=== PATIENT | female | born 1945 | race Caucasian/White ===

== ENCOUNTER 2019-11-18 17:02 | Emergency (ER) | payer MEDICARE ==
[~2019-11-18] VITALS: Ht 157.5 cm; Wt 36.0 kg
[2019-11-18 17:46] LABS: BASOPHILS # (AUTO) 0.1 X10'3 (0-0.2); BASOPHILS % (AUTO) 0.9 % (0-1); EOSINOPHILS # (AUTO) 0.1 X10'3 (0-0.9); EOSINOPHILS % (AUTO) 1.6 % (0-6); HEMATOCRIT 40.4 % (35.0-45.0); HEMOGLOBIN 13.9 g/dl (12.0-16.0); LYMPHOCYTES # (AUTO) 1.3 X10'3 (1.1-4.8); LYMPHOCYTES % (AUTO) 17.8 % (21-51); MEAN CORPUSCULAR HEMOGLOBIN 32.8 PG (27.0-31.0); MEAN CORPUSCULAR HGB CONC 34.4 g/dL (33.0-36.5); MEAN CORPUSCULAR VOLUME 95.4 FL (78-98); MEAN PLATELET VOLUME 8.3 FL (7.4-10.4); MONOCYTES # (AUTO) 0.7 X10'3 (0-0.9); MONOCYTES % (AUTO) 9.5 % (2-12); NEUTROPHILS % (AUTO) 70.2 % (42-75); PLATELET COUNT 193 X10'3 (140-440); RED BLOOD COUNT 4.24 X10'6 (4.20-5.60); WHITE BLOOD COUNT 7.1 X10'3 (4.5-11.0)
[2019-11-18 18:08] LABS: ALANINE AMINOTRANSFERASE 19 U/L (12-78); ALBUMIN 3.7 G/DL (3.4-5.0); ALBUMIN/GLOBULIN RATIO 0.8 (1.1-1.5); ALKALINE PHOSPHATASE 88 IU/L (46-116); ANION GAP 8 (8-16); ASPARTATE AMINO TRANSFERASE 28 U/L (10-37); BILIRUBIN,TOTAL 0.3 MG/DL (0.1-1.0); BLOOD UREA NITROGEN 13 MG/DL (7-18); BUN/CREATININE RATIO 18.8 (6.6-38.0); CALCIUM 9.2 MG/DL (8.5-10.1); CHLORIDE 100 MMOL/L (99-107); CREATININE 0.69 MG/DL (0.40-0.90); GLUCOSE 87 MG/DL (70-104); POTASSIUM 4.9 MMOL/L (3.5-5.1); SODIUM 139 MMOL/L (135-145); TOTAL CARBON DIOXIDE 31.2 MMOL/L (24-32); TOTAL PROTEIN 8.2 G/DL (6.4-8.2); eGFR 83 ML/MIN
[2019-11-18] MEDS ORDERED: LEVO750T21 PO (20:15)
[2019-11-18 20:31] VITALS: BP 115/75
== END 2019-11-18 20:32 | disposition home or self-care (01) ==
LOC: ER 17:03
DX: J20.9 Acute bronchitis, unspecified (principal); Z79.899 Other long term (current) drug therapy
CPT/HCPCS: 36415; 71046; 80053; 84484; 85025; 93005; 99284

== ENCOUNTER 2020-04-04 10:48 | Day surgery (SDC) | payer MEDICARE ==
[2020-04-04] VITALS (7 sets, daily range): BP systolic 90–130; BP diastolic 55–75
[~2020-04-04] VITALS: Ht 142.2 cm; Wt 30.8 kg
[2020-04-04] MEDS ORDERED: cefazolin/dext.iso 2gm/50ml 50 ML IV ONE (11:10)
[2020-04-04] MEDS ORDERED: normal saline 1000ml 1,000 ML IV SCH (11:15)
[2020-04-04 12:11] LABS: BASOPHILS % (AUTO) 0.4 % (0-1); EOSINOPHILS % (AUTO) 1.1 % (0-6); HEMATOCRIT 30.2 % (35.0-45.0); HEMOGLOBIN 10.1 g/dl (12.0-16.0); LYMPHOCYTES # (AUTO) 1.1 X10'3 (1.1-4.8); LYMPHOCYTES % (AUTO) 26.9 % (21-51); MEAN CORPUSCULAR HEMOGLOBIN 31.8 PG (27.0-31.0); MEAN CORPUSCULAR HGB CONC 33.4 g/dL (33.0-36.5); MEAN PLATELET VOLUME 9.3 FL (7.4-10.4); MONOCYTES # (AUTO) 0.2 X10'3 (0-0.9); MONOCYTES % (AUTO) 6.2 % (2-12); NEUTROPHILS # (AUTO) 2.6 X10'3 (1.8-7.7); NEUTROPHILS % (AUTO) 65.4 % (42-75); PLATELET COUNT 174 X10'3 (140-440); RED BLOOD COUNT 3.17 X10'6 (4.20-5.60); WHITE BLOOD COUNT 3.9 X10'3 (4.5-11.0)
[2020-04-04] MEDS ORDERED: MORP15TA PO (12:18)
[2020-04-04] MEDS ORDERED: LACT-100 GT (12:18)
[2020-04-04] MEDS ORDERED: GABA300C PO (12:18)
[2020-04-04] MEDS ORDERED: SIMV10TA2 PO (12:18)
[2020-04-04 12:34] LABS: ALANINE AMINOTRANSFERASE 30 U/L (12-78); ALBUMIN 3.6 G/DL (3.4-5.0); ALBUMIN/GLOBULIN RATIO 0.9 (1.1-1.5); ALKALINE PHOSPHATASE 53 IU/L (46-116); ANION GAP 6 (8-16); ASPARTATE AMINO TRANSFERASE 37 U/L (10-37); BILIRUBIN,TOTAL 0.2 MG/DL (0.1-1.0); BLOOD UREA NITROGEN 15 MG/DL (7-18); BUN/CREATININE RATIO 27.3 (6.6-38.0); CALCIUM 8.5 MG/DL (8.5-10.1); CHLORIDE 103 MMOL/L (99-107); CREATININE 0.55 MG/DL (0.40-0.90); GLUCOSE 87 MG/DL (70-104); POTASSIUM 3.9 MMOL/L (3.5-5.1); SODIUM 136 MMOL/L (135-145); TOTAL CARBON DIOXIDE 26.9 MMOL/L (24-32); TOTAL PROTEIN 7.6 G/DL (6.4-8.2); eGFR > 90 ML/MIN
[2020-04-04] MEDS ORDERED: zinc oxide ointment 30gm tube TP PRN (12:50)
[2020-04-04] MEDS ORDERED: midazolam 2 mg/2 ml injection ONE (13:19)
[2020-04-04] MEDS ORDERED: fentaNYL/PF 50MCG/1 ML 2ML syringe ONE ×2 (13:19→13:37)
[2020-04-04] MEDS ORDERED: iohexol 300 MG/1 ML 50ml polymer ONE ×2 (13:20→13:27)
== END 2020-04-04 15:10 | disposition home or self-care (01) ==
LOC: SSTAY O 10:48
PROVIDERS: ATTEND Radiology Diagnostic Radiology
DX: Z43.1 Encounter for attention to gastrostomy (principal); C76.0 Malignant neoplasm of head, face and neck; E78.00 Pure hypercholesterolemia, unspecified; E46 Unspecified protein-calorie malnutrition; Z79.899 Other long term (current) drug therapy; Z79.891 Long term (current) use of opiate analgesic; Z80.1 Family history of malignant neoplasm of trachea, bronchus and lung; Z82.49 Family history of ischemic heart disease and other diseases of the circulatory system
CPT/HCPCS: 36415; 49450; 80053; 85025; 85610; 87635; 99152; 99153; J2250; J3010; Q9967; B4087

== ENCOUNTER 2020-08-08 11:21 | Day surgery (SDC) | payer MEDICARE ==
[~2020-08-08] VITALS: Ht 142.2 cm; Wt 33.1 kg
[~2020-08-08 11:21] MED LIST: GABA300C PO; LACT-100 GT; MORP15TA PO; SIMV10TA2 PO
[2020-08-08] MEDS ORDERED: normal saline 1000ml 1,000 ML IV SCH (11:40)
[2020-08-08 11:45] VITALS: BP 139/70
[2020-08-08] MEDS ORDERED: ESOM20CA38 GT (11:45)
--- NOTE | 2020-08-08 12:30 | NUR ---
Procedure done at bedside by IR staff. Pt tolerated well, no complications. Patency & placement verified by x-ray.
[2020-08-08] MEDS ORDERED: iohexol 300 MG/1 ML 50ml polymer ONE (12:32)
[2020-08-08 13:30] VITALS: BP 105/61
--- NOTE | 2020-08-08 13:34 | NUR ---
X-ray resulted, g-tube in proper location. Dr. Toussaint phoned, okayed discharge now.
== END 2020-08-08 13:40 | disposition home or self-care (01) ==
LOC: SSTAY O 11:21
PROVIDERS: ATTEND Radiology Diagnostic Radiology
DX: Z43.1 Encounter for attention to gastrostomy (principal); R64 Cachexia; C76.0 Malignant neoplasm of head, face and neck; Z79.899 Other long term (current) drug therapy; Z85.819 Personal history of malignant neoplasm of unspecified site of lip, oral cavity, and pharynx; Z85.79 Personal history of other malignant neoplasms of lymphoid, hematopoietic and related tissues; Z82.49 Family history of ischemic heart disease and other diseases of the circulatory system; Z80.1 Family history of malignant neoplasm of trachea, bronchus and lung
CPT/HCPCS: 43762; 74018; Q9967; B4087